=== PATIENT | male | born 2000 | race African-American/Black ===

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

== ENCOUNTER 2022-05-15 02:55 | Emergency (ER) | payer MEDICAID ==
[2022-05-15] MEDS ORDERED: Zofran 4 MG/2 ML VIAL IV ONE (03:21)
[2022-05-15] MEDS ORDERED: Sodium Chloride 0.9% 1000 ML 1,000 ML IV STA ×2 (03:21→04:38)
[2022-05-15] MEDS ORDERED: THIAMINE 200 MG/2 ML IV ONE (03:21)
--- NOTE | 2022-05-15 03:21 | ERPHSYRPT ---
- History of Present Illness Source: patient, other (Friends) Exam Limitations: clinical condition, intoxication Timing/Duration: today Severity: moderate Associated Symptoms: other (Intoxicated), No nausea, No vomiting, No abdominal pain Hx Tetanus, Diphtheria Vaccination/Date Given: Yes Hx Influenza Vaccination/Date Given: Yes Hx Pneumococcal Vaccination/Date Given: No <ALEISHA STONE - Last Filed: 05/15/22 07:09> <SUHAIL LIMON - Last Filed: 05/15/22 07:59> - History of Present Illness Time Seen by Provider: 05/15/22 03:15 Physician History: This is a 22-year-old -[place] male who presents to the emergency department significantly intoxicated with alcohol per friends who brought him in. They describe his intake as a 12 pack of beer with four "4 Saffell" drinks. He drinks he is in a short period of time. Additional history was obtained from the patient's friend. He denies that this patient took any type of illicit drugs and did not smoke any illicit drugs. Patient has a history of asthma. Patient presents to the emergency department and vital signs are stable. Patient's friend states that the patient began drinking before 11 PM last night and his last drink was around 1-1 30 this morning. (ALEISHA STONE) Allergies/Adverse Reactions: No Known Drug Allergies Allergy (Verified 05/15/22 03:36) Home Medications: No Reportable Medications [No Reported Medications] 07/04/20 [History] Travel Risk - International Travel Have you traveled outside of the country in past 3 weeks: No - Coronavirus Screening Are you exhibiting any of the following symptoms?: No Close contact with a COVID-19 positive Pt in past 14-21 Days: No - Vaccine Status Have you recieved a Covid-19 vaccination: No <ALEISHA STONE - Last Filed: 05/15/22 07:09> - Review of Systems Constitutional: Lethargy, Other (Intoxicated) Eyes: No Symptoms Ears, Nose, & Throat: No Symptoms Respiratory: No Symptoms Cardiac: No Symptoms Abdominal/Gastrointestinal: No Symptoms Genitourinary Symptoms: No Symptoms Musculoskeletal: No Symptoms Skin: No Symptoms Neurological: No Symptoms Psychological: No Symptoms Endocrine: No Symptoms Hematologic/Lymphatic: No Symptoms Immunological/Allergic: No Symptoms All Other Systems: Reviewed and Negative <ALEISHA STONE - Last Filed: 05/15/22 07:09> - Past Medical History Pertinent Past Medical History: Yes Neurological History: No Pertinent History ENT History: No Pertinent History Cardiac History: No Pertinent History Respiratory History: Asthma Endocrine Medical History: No Pertinent History Musculoskeletal History: Fractures GI Medical History: No Pertinent History History: No Pertinent History Psycho-Social History: No Pertinent History Male Reproductive Disorders: No Pertinent History - Past Surgical History Past Surgical History: No - Social History Smoking Status: Never smoker Exposure to second hand smoke: Yes Drug Use: marijuana Patient Lives Alone: No Significant Family History: no pertinent family hx <ALEISHA STONE JeremíasCesar - Last Filed: 05/15/22 07:09> - Physical Exam General Appearance: lethargy, other (Intoxicated) Eye Exam: PERRL/EOMI, eyes nml inspection Ears, Nose, Throat Exam: dry mucous membranes Neck Exam: normal inspection, non-tender, supple, full range of motion Respiratory Exam: normal breath sounds, lungs clear, airway intact, No chest tenderness, No respiratory distress Cardiovascular Exam: regular rate/rhythm, normal heart sounds, normal peripheral pulses Gastrointestinal/Abdomen Exam: soft, normal bowel sounds, No tenderness Rectal Exam: not done Back Exam: normal inspection, normal range of motion, No CVA tenderness, No vertebral tenderness Extremity Exam: normal inspection, normal range of motion, pelvis stable Neurologic Exam: confusion, intoxicated appearance Skin Exam: normal color, warm, dry Lymphatic Exam: No adenopathy SpO2 Interpretation: normal O2 Delivery: Room Air <ALEISHA STONE - Last Filed: 05/15/22 07:09> - Nursing Vital Signs Nursing Vital Signs: Initial Vital Signs Temperature 99.7 F 05/15/22 03:04 Pulse Rate 108 H 05/15/22 03:04 Respiratory Rate 24 05/15/22 03:04 Blood Pressure 158/104 05/15/22 03:04 O2 Sat by Pulse Oximetry 99 05/15/22 03:04 Pain Scale Pain Intensity 0 - Course Nursing assessment & vital signs reviewed: Yes EKG Interpreted by Me: RATE, Sinus Rhythm, NORMAL AXIS, NORMAL INTERVALS, NORMAL QRS, NORMAL ST-T, Other <ALEISHA STONE - Last Filed: 05/15/22 07:09> - CT Exams Head CT Interpretation: Tele-radiologist Report (Comps. Normal head) <SUHAIL LIMON - Last Filed: 05/15/22 07:59> Ordered Tests: Active Orders 24 hr Category Date Time Status Clean Catch Urine Specimen STAT Care 05/15/22 03:21 Active EKG-ER Only STAT Care 05/15/22 03:21 Active IV Insertion STAT Care 05/15/22 03:21 Active HEAD WITHOUT CONTRAST [CT] Stat Exams 05/15/22 03:32 Taken ACETAMINOPHEN Stat Lab 05/15/22 03:31 Completed BMP Stat Lab 05/15/22 07:14 Completed CBC W DIFF Stat Lab 05/15/22 03:31 Completed CMP Stat Lab 05/15/22 03:31 Completed ETHYL ALCOHOL Stat Lab 05/15/22 03:31 Completed ETHYL ALCOHOL Stat Lab 05/15/22 07:14 Completed SALICYLATE Stat Lab 05/15/22 03:31 Completed UA W/RFX UR CULTURE Stat Lab 05/15/22 05:44 Completed Urine Triage Profile Stat Lab 05/15/22 05:44 Completed Medication Summary Discontinued Medications Generic Name Dose Route Start Last Admin Trade Name Freq PRN Reason Stop Dose Admin Sodium Chloride 1,000 mls @ 999 mls/hr 05/15/22 03:21 05/15/22 04:30 Sodium Chloride 0.9% 1000 Ml IV 05/15/22 04:21 Infused .Q1H1M STA Infusion Sodium Chloride Confirm 05/15/22 03:26 Sodium Chloride 0.9% 1000 Ml Administered 05/15/22 03:27 Dose 1,000 mls @ ud .ROUTE .STK-MED ONE Multivitamins/Minerals 10 ml/ 1,000 mls @ 250 mls/hr 05/15/22 04:45 Thiamine HCl 100 mg/ Folic IV 06/14/22 04:44 Acid 1 mg/ Sodium Chloride .Q4H LAILA Sodium Chloride 1,000 mls @ 999 mls/hr 05/15/22 04:38 05/15/22 07:24 Sodium Chloride 0.9% 1000 Ml IV 05/15/22 05:38 Infused .Q1H1M STA Infusion Sodium Chloride Confirm 05/15/22 04:46 Sodium Chloride 0.9% 1000 Ml Administered 05/15/22 04:47 Dose 1,000 mls @ ud .ROUTE .STK-MED ONE Ondansetron HCl 4 mg 05/15/22 03:21 05/15/22 03:28 Ondansetron Hcl 4 Mg/2 Ml Vial IV 05/15/22 03:22 4 mg STAT ONE Administration Ondansetron HCl Confirm 05/15/22 03:26 Ondansetron Hcl 4 Mg/2 Ml Vial Administered 05/15/22 03:27 Dose 4 mg .ROUTE .STK-MED ONE Pantoprazole Sodium 40 mg 05/15/22 03:23 05/15/22 03:30 Pantoprazole 40 Mg Vial IV 05/15/22 03:24 40 mg STAT ONE Administration Pantoprazole Sodium Confirm 05/15/22 03:30 Pantoprazole 40 Mg Vial Administered 05/15/22 03:31 Dose 40 mg IV .STK-MED ONE Thiamine HCl 100 mg 05/15/22 03:21 05/15/22 05:37 Thiamine Hcl 200 Mg/2 Ml Vial IV 05/15/22 03:22 Not Given STAT ONE Thiamine HCl Confirm 05/15/22 03:26 Thiamine Hcl 200 Mg/2 Ml Vial Administered 05/15/22 03:27 Dose 200 mg .ROUTE .STK-MED ONE Lab/Rad Data: Laboratory Result Diagrams 05/15/22 03:31 05/15/22 07:14 Laboratory Results 05/15/22 05/15/22 05/15/22 Range/Units 07:14 05:44 05:44 WBC (4.0-10.5) x10^3/uL RBC (4.1-5.6) x10^6/uL Hgb (12.5-18.0) g/dL Hct (42-50) % MCV (78-100) fL MCH (26-32) pg MCHC (32-36) g/dL RDW (11.5-14.0) % Plt Count (150-450) x10^3/uL MPV (7.5-11.0) fL Gran % (36.0-66.0) % Immature Gran % (Auto) (0.00-0.4) % Nucleat RBC Rel Count (0.00-0.1) % Eos # (Auto) (0-0.5) x10^3/uL Immature Gran # (Auto) (0.00-0.03) x10^3u/L Absolute Lymphs (auto) (1.0-4.6) x10^3/uL Absolute Monos (auto) (0.0-1.3) x10^3/uL Absolute Nucleated RBC (0.00-0.01) x10^3u/L Lymphocytes % (24.0-44.0) % Monocytes % (0.0-12.0) % Eosinophils % (0.00-5.0) % Basophils % (0.0-0.4) % Absolute Granulocytes (1.4-6.9) x10^3/uL Basophils # (0-0.4) x10^3/uL Sodium 144 (137-145) mmol/L Potassium 4.2 (3.5-5.1) mmol/L Chloride 110 H (98-107) mmol/L Carbon Dioxide 26 (22-30) mmol/L Anion Gap 12.7 (5-15) MEQ/L BUN 6 L (9-20) mg/dL Creatinine 0.85 (0.66-1.25) mg/dL Estimated GFR > 60.0 ML/MIN Glucose 94 (74-106) mg/dL Calcium 8.0 L (8.4-10.2) mg/dL Total Bilirubin (0.2-1.3) mg/dL AST (17-59) U/L ALT (0-50) U/L Alkaline Phosphatase (38-126) U/L Serum Total Protein (6.3-8.2) g/dL Albumin (3.5-5.0) g/dL Urine Color Yellow (Yellow) Urine Appearance Clear (Clear) Urine pH 6.5 (4.6-8.0) Ur Specific [place] 1.010 (1.005-1.030) Urine Protein Negative (Negative) Urine Glucose (UA) Negative (Negative) mg/dL Urine Ketones Negative (Negative) Urine Blood Negative (Negative) Urine Nitrite Negative (Negative) Urine Bilirubin Negative (Negative) Urine Urobilinogen 0.2 (0.2) mg/dL Ur Leukocyte Esterase Negative (Negative) U Hyaline Cast (Auto) NONE SEEN (0-2) /LPF Urine Microscopic RBC 0-2 (0-5) /HPF Urine Microscopic WBC 0-2 (0-5) /HPF Ur Epithelial Cells None Seen (None Seen) /HPF Urine Bacteria None Seen (None Seen) /HPF Urine Culture Reflexed NO (NO) Salicylates (2-20) mg/dL Urine Opiates Level NEGATIVE (NEGATIVE) Ur Methadone NEGATIVE (NEGATIVE) Acetaminophen (10-30) ug/ml Urine Barbiturates NEGATIVE (NEGATIVE) Ur Phencyclidine (PCP) NEGATIVE (NEGATIVE) Urine Amphetamine NEGATIVE (NEGATIVE) U Benzodiazepine Level NEGATIVE (NEGATIVE) Urine Cocaine NEGATIVE (NEGATIVE) Urine Marijuana (THC) POSITIVE (NEGATIVE) Ethyl Alcohol 122 H (0-10) mg/dL 05/15/22 05/15/22 Range/Units 03:31 03:31 WBC 10.2 (4.0-10.5) x10^3/uL RBC 6.19 H (4.1-5.6) x10^6/uL Hgb 18.1 H (12.5-18.0) g/dL Hct 52.3 H (42-50) % MCV 84.5 (78-100) fL MCH 29.2 (26-32) pg MCHC 34.6 (32-36) g/dL RDW 11.6 (11.5-14.0) % Plt Count 315 (150-450) x10^3/uL MPV 9.6 (7.5-11.0) fL Gran % 52.2 (36.0-66.0) % Immature Gran % (Auto) 0.3 (0.00-0.4) % Nucleat RBC Rel Count 0.0 (0.00-0.1) % Eos # (Auto) 0.49 (0-0.5) x10^3/uL Immature Gran # (Auto) 0.03 (0.00-0.03) x10^3u/L Absolute Lymphs (auto) 3.63 (1.0-4.6) x10^3/uL Absolute Monos (auto) 0.64 (0.0-1.3) x10^3/uL Absolute Nucleated RBC 0.00 (0.00-0.01) x10^3u/L Lymphocytes % 35.6 (24.0-44.0) % Monocytes % 6.3 (0.0-12.0) % Eosinophils % 4.8 (0.00-5.0) % Basophils % 0.8 (0.0-0.4) % Absolute Granulocytes 5.34 (1.4-6.9) x10^3/uL Basophils # 0.08 (0-0.4) x10^3/uL Sodium 144 (137-145) mmol/L Potassium 4.0 (3.5-5.1) mmol/L Chloride 107 (98-107) mmol/L Carbon Dioxide 18 L (22-30) mmol/L Anion Gap 22.9 H (5-15) MEQ/L BUN 7 L (9-20) mg/dL Creatinine 0.89 (0.66-1.25) mg/dL Estimated GFR > 60.0 ML/MIN Glucose 95 (74-106) mg/dL Calcium 9.1 (8.4-10.2) mg/dL Total Bilirubin 0.50 (0.2-1.3) mg/dL AST 136 H (17-59) U/L ALT 59 H (0-50) U/L Alkaline Phosphatase 58 (38-126) U/L Serum Total Protein 8.4 H (6.3-8.2) g/dL Albumin 5.1 H (3.5-5.0) g/dL Urine Color (Yellow) Urine Appearance (Clear) Urine pH (4.6-8.0) Ur Specific [place] (1.005-1.030) Urine Protein (Negative) Urine Glucose (UA) (Negative) mg/dL Urine Ketones (Negative) Urine Blood (Negative) Urine Nitrite (Negative) Urine Bilirubin (Negative) Urine Urobilinogen (0.2) mg/dL Ur Leukocyte Esterase (Negative) U Hyaline Cast (Auto) (0-2) /LPF Urine Microscopic RBC (0-5) /HPF Urine Microscopic WBC (0-5) /HPF Ur Epithelial Cells (None Seen) /HPF Urine Bacteria (None Seen) /HPF Urine Culture Reflexed (NO) Salicylates < 1.0 L (2-20) mg/dL Urine Opiates Level (NEGATIVE) Ur Methadone (NEGATIVE) Acetaminophen < 10 L (10-30) ug/ml Urine Barbiturates (NEGATIVE) Ur Phencyclidine (PCP) (NEGATIVE) Urine Amphetamine (NEGATIVE) U Benzodiazepine Level (NEGATIVE) Urine Cocaine (NEGATIVE) Urine Marijuana (THC) (NEGATIVE) Ethyl Alcohol 177 H (0-10) mg/dL - Progress Progress: improved Counseled pt/family regarding: lab results, diagnosis, need for follow-up, rad results <ALEISHA STONE - Last Filed: 05/15/22 07:09> <SUHAIL LIMON - Last Filed: 05/15/22 07:59> - Progress Progress Note: 05/15/22 07:11 CT scan of the head without contrast has not been read. There is been issue with nighttime radiology system. It has been down for several hours. Dr. Chapa will come in at 7 AM and read this CT scan of the abdomen pelvis. Clinically, the patient is improving. He is now more awake alert oriented and wants to go home at this point but is doing better and will wait until the scan report has returned. Patient care is transferred to Dr. Suhail Limon at shift change. He will follow-up on the final studies and make final disposition. (ALEISHA STONE) Patient endorsed to Dr. Limon at approximately [address] Limon advised to follow- up on pending CT head. There was a delay due to a systemwide failure. CT head read this morning. CT head read as negative. Initial labs revealed a significant anion gap acidosis. However repeat labs after 2 L of IV fluids showed resolved anion gap acidosis. Patient reassessed. Patient neurologic status is normal. Patient ambulated with a normal gait. Patient mentating normally. Patient states he is ready for discharge. He declined breakfast this morning. Laboratory tests ordered include toxicology screen, CBC CMP EtOH, salicylate, urinalysis. CBC reveals a polycythemia with a hemoglobin of 18.1. Urine tox shows marijuana use. Patient's alcohol level was initially 177 and subsequently decreased to 122. Patient's friend is at the bedside. No indication for further work-up at this time. Patient is relatively healthy. No additional acute issues to address. Patient agrees to follow-up with his primary care doctor within 48 hours for reevaluation. Vital stable Portions of this note were created with voice recognition technology. There may be grammatical, spelling, punctuation or sound alike errors 05/15/22 07:55 05/15/22 07:58 (SUHAIL LIMON) - Departure Departure Disposition: Home Critical Care Time: No <ALEISHA STONE - Last Filed: 05/15/22 07:09> <SUHAIL LIMON - Last Filed: 05/15/22 07:59> - Departure Clinical Impression: Alcohol intoxication, Marijuana use, Polycythemia Condition: Stable Referrals: DOCTOR,NO FAMILY [Primary Care Provider] - Follow up/PCP as directed Additional Instructions: Discharge/Care Plan ERIC LACKEY was seen on 05/15/22 in the Emergency Room. The patient was counseled regarding Diagnosis,Lab results, Imaging studies, need for follow up and when to return to the Emergency Room. Prescriptions given: Discharge Note I have spoken with the patient and/or caregivers. I have explained the patient's condition, diagnosis and treatment plan based on the information available to me at this time. I have answered the patient's and/or caregiver's questions and addressed any concerns. The patient and/or caregivers have as good understanding of the patient's diagnosis, condition and treatment plan as can be expected at this point. The vital signs have been stable. The patient's condition is stable and appropriate for discharge from the emergency department. The patient will pursue further outpatient evaluation with the primary care physician or other designated or consulting physician as outlined in the disc harge instructions. The patient and/or caregivers are agreeable to this plan of care and follow-up instructions have been explained in detail. The patient and/or caregivers have received these instruction. The patient/and or caregivers are aware that any significant change in condition or worsening of symptoms should prompt an immediate return to this or the closest emergency department or call 911.
[2022-05-15] MEDS ORDERED: PROTONIX 40 MG IV IV ONE ×2 (03:23→03:30)
[2022-05-15] MEDS ORDERED: Zofran 4 MG/2 ML VIAL ONE (03:26)
[2022-05-15] MEDS ORDERED: Sodium Chloride 0.9% 1000 ML 1,000 ML ONE ×2 (03:26→04:46)
[2022-05-15] MEDS ORDERED: THIAMINE 200 MG/2 ML ONE (03:26)
[2022-05-15 03:34] LABS: Absolute Neutrophil Ct (ANC) 5.34 x10^3/uL (1.4-6.9); BASOPHIL % 0.8 % (0.0-0.4); Basophil (Absolute #) 0.08 x10^3/uL (0-0.4); Eosinophil % 4.8 % (0.00-5.0); Eosinophil (Absolute #) 0.49 x10^3/uL (0-0.5); Hematocrit 52.3 % (42-50); Hemoglobin 18.1 g/dL (12.5-18.0); IMMATURE GRAN # 0.03 x10^3u/L (0.00-0.03); IMMATURE GRAN % 0.3 % (0.00-0.4); Lymphocyte (Absolute #) 3.63 x10^3/uL (1.0-4.6); Lymphocytes % 35.6 % (24.0-44.0); Mean Cell Volume 84.5 fL (78-100); Mean Corpuscular Hemoglobin 29.2 pg (26-32); Mean Corpuscular Hgb Concent. 34.6 g/dL (32-36); Mean Platelet Volume 9.6 fL (7.5-11.0); Monocyte (Absolute #) 0.64 x10^3/uL (0.0-1.3); Monocytes % 6.3 % (0.0-12.0); Neutrophil % 52.2 % (36.0-66.0); Platelet Count 315 x10^3/uL (150-450); Red Blood Count 6.19 x10^6/uL (4.1-5.6); Red Cell Distribution Width 11.6 % (11.5-14.0); White Blood Count 10.2 x10^3/uL (4.0-10.5)
[2022-05-15 03:41] LABS: ACETAMINOPHEN < 10 ug/ml (10-30); ALBUMIN 5.1 g/dL (3.5-5.0); ALKALINE PHOSPHATASE 58 U/L (38-126); ANION GAP 22.9 MEQ/L (5-15); BLOOD UREA NITROGEN 7 mg/dL (9-20); CHLORIDE 107 mmol/L (98-107); Calcium 9.1 mg/dL (8.4-10.2); Carbon Dioxide 18 mmol/L (22-30); Creatinine 1 0.89 mg/dL (0.66-1.25); EST GLOMERULAR FILTRATION RATE > 60.0 ML/MIN; ETHYL ALCOHOL 177 mg/dL (0-10); Glucose 95 mg/dL (74-106); SALICYLATE < 1.0 mg/dL (2-20); SGOT/AST 136 U/L (17-59); SGPT/ALT 59 U/L (0-50); SODIUM 144 mmol/L (137-145); Total Protein 8.4 g/dL (6.3-8.2)
[2022-05-15] MEDS ORDERED: Vitamins For Infusion 10 ML INJECTION*** 10 ML, THIAMINE 200 MG/2 ML*** 100 MG, FOLNATE... IV SCH ×4 (04:45)
[2022-05-15 05:56] LABS: Appearance Clear (Clear); Bacteria None Seen /HPF (None Seen); Bilirubin Negative (Negative); Blood Negative (Negative); Epithelial Cells None Seen /HPF (None Seen); Glucose, Urine Negative (Negative); Hyaline Casts NONE SEEN /LPF (0-2); Ketones Negative (Negative); Leukocyte Esterase Negative (Negative); Nitrite Negative (Negative); Ph 6.5 (4.6-8.0); Protein,Urine Dip Negative (Negative); RBC 0-2 /HPF (0-5); Urobilinogen 0.2 mg/dL (0.2); WBC 0-2 /HPF (0-5)
[2022-05-15 05:57] LABS: ADD URINE CULTURE? NO (NO)
[2022-05-15 06:09] LABS: Amphetamine,Urine NEGATIVE (NEGATIVE); Barbiturate,Urine NEGATIVE (NEGATIVE); Benzodiazepine,Urine NEGATIVE (NEGATIVE); Cocaine,Urine NEGATIVE (NEGATIVE); Methadone,Urine NEGATIVE (NEGATIVE); Opiate,Urine NEGATIVE (NEGATIVE); PCP,Urine NEGATIVE (NEGATIVE); THC,Urine POSITIVE (NEGATIVE)
[2022-05-15 07:37] LABS: ANION GAP 12.7 MEQ/L (5-15); BLOOD UREA NITROGEN 6 mg/dL (9-20); CHLORIDE 110 mmol/L (98-107); Carbon Dioxide 26 mmol/L (22-30); Creatinine 1 0.85 mg/dL (0.66-1.25); EST GLOMERULAR FILTRATION RATE > 60.0 ML/MIN; ETHYL ALCOHOL 122 mg/dL (0-10); Glucose 94 mg/dL (74-106); Potassium 4.2 mmol/L (3.5-5.1); SODIUM 144 mmol/L (137-145)
[2022-05-15 07:38] VITALS: BP 116/47; PULSE 58; O2SAT 97
--- NOTE | 2022-05-15 08:55 | XRAY ---
Indication: Altered mental status. Multiple contiguous axial images obtained through the head without contrast. Comparison: None Normal appearing brain parenchyma, ventricles, and bony calvarium. Visualized paranasal sinuses and mastoid air cells are clear. Impression: Normal CT head without contrast exam.
== END 2022-05-15 08:00 | disposition home or self-care (01) ==
LOC: ED 02:55
DX: F10.129 Alcohol abuse with intoxication, unspecified (principal); F12.90 Cannabis use, unspecified, uncomplicated; Y90.6 Blood alcohol level of 120-199 mg/100 ml; D75.1 Secondary polycythemia; Z28.310 Unvaccinated for COVID-19
CPT/HCPCS: 36000; 36415; 70450; 80048; 80053; 80307; 81001; 85025; 93005; 96360; 96361; 96374; 96375; 99284; J2405; G0480

== ENCOUNTER 2023-01-19 01:13 | Emergency (ER) | payer MEDICAID ==
[2023-01-19] MEDS ORDERED: Zofran 4 MG/2 ML VIAL ONE (01:31)
[2023-01-19] MEDS ORDERED: Sodium Chloride 0.9% 1000 ML 1,000 ML ONE (01:31)
[2023-01-19] MEDS ORDERED: Sodium Chloride 0.9% 1000 ML 1,000 ML IV STA (01:32)
[2023-01-19] MEDS ORDERED: Zofran 4 MG/2 ML VIAL IV ONE (01:33)
[2023-01-19] MEDS ORDERED: PROTONIX 40 MG IV IV ONE ×2 (01:35→01:56)
[2023-01-19 01:36] VITALS: TEMP 97.8
--- NOTE | 2023-01-19 01:39 | ERPHSYRPT ---
<ELI MORAN - Last Filed: 01/19/23 09:41> - History of Present Illness Historian: patient Exam Limitations: no limitations Patient Subjective Stated Complaint: pt states pt has been at a [employer] tonight and was drinking. friend with pt states approx 1 hour ago pt was awake but very intoxicated, then became unresponsive. pt responsive to painful stimuli. Triage Nursing Assessment: pt arrived with friend. friend states pt has been drinking tonight. unknown if he has taken any drugs. pt unresponsive at home, prior to coming into er. pt carried into hospital by friends, back to er per wheelchair and responsive to painful stimuli. pupils equal and reactive. skin warm and dry. Hx Tetanus, Diphtheria Vaccination/Date Given: Yes Hx Influenza Vaccination/Date Given: No Hx Pneumococcal Vaccination/Date Given: No Immunizations Up to Date: Yes <MAKENNA SALINAS - Last Filed: 01/19/23 19:43> - History of Present Illness Time Seen by Provider: 01/19/23 01:35 Physician History: 23-year-old is brought in the ER by friends after if he was drinking a lot at a [employer] and was unresponsive. Patient was minimally responsive to painful stimuli initially but later started vomiting and woke up. Patient reported he has been drinking quite a bit all the evening. Denies any abdominal pain, chest pain or difficulty breathing. Denies any drug use. Not a good historian and history is limited. Patient is not in any distress though. (MAKENNA SALINAS) Allergies/Adverse Reactions: No Known Drug Allergies Allergy (Verified 01/19/23 01:39) Home Medications: No Reportable Medications [No Reported Medications] 07/04/20 [History] Travel Risk - International Travel Have you traveled outside of the country in past 3 weeks: No - Coronavirus Screening Are you exhibiting any of the following symptoms?: No Close contact with a COVID-19 positive Pt in past 14-21 Days: No - Vaccine Status Have you recieved a Covid-19 vaccination: No <MAKENNA SALINAS - Last Filed: 01/19/23 19:43> - Review of Systems All Other Systems: Unable due to condition <MAKENNA SALINAS - Last Filed: 01/19/23 19:43> - Past Medical History Pertinent Past Medical History: Yes Neurological History: No Pertinent History ENT History: No Pertinent History Cardiac History: No Pertinent History Respiratory History: Asthma Endocrine Medical History: No Pertinent History Musculoskeletal History: Fractures GI Medical History: No Pertinent History History: No Pertinent History Psycho-Social History: No Pertinent History Male Reproductive Disorders: No Pertinent History - Past Surgical History Past Surgical History: No - Social History Smoking Status: Never smoker Exposure to second hand smoke: Yes Drug Use: marijuana Patient Lives Alone: No Significant Family History: no pertinent family hx <LEILANI SALINASR - Last Filed: 01/19/23 19:43> - Physical Exam General Appearance: no apparent distress Eye Exam: PERRL/EOMI, eyes nml inspection Ears, Nose, Throat Exam: normal ENT inspection, TMs normal, pharynx normal Neck Exam: normal inspection, non-tender, supple, full range of motion Respiratory Exam: normal breath sounds, lungs clear Cardiovascular Exam: regular rate/rhythm, normal heart sounds Gastrointestinal/Abdomen Exam: soft, normal bowel sounds, No tenderness Extremity Exam: normal inspection, normal range of motion Neurologic Exam: oriented x 3, cooperative, contracts attorney II-XII nml as tested, No motor deficits Skin Exam: normal color SpO2 Interpretation: normal SpO2: 97 O2 Delivery: Room Air <BRENDA SALINASMIR - Last Filed: 01/19/23 19:43> - Nursing Vital Signs Nursing Vital Signs: Initial Vital Signs Temperature 97.8 F 01/19/23 01:19 Pulse Rate 80 01/19/23 01:19 Respiratory Rate 16 01/19/23 01:19 Blood Pressure 153/89 01/19/23 01:19 O2 Sat by Pulse Oximetry 97 01/19/23 01:19 Pain Scale Pain Intensity 0 Ordered Tests: Active Orders 24 hr Category Date Time Status IV Insertion STAT Care 01/19/23 01:35 Completed NPO (ED) STAT Care 01/19/23 01:35 Completed Alcohol [ETHYL ALCOHOL] Stat Lab 01/19/23 01:42 Completed Alcohol [ETHYL ALCOHOL] Stat Lab 01/19/23 05:55 Completed CBC W DIFF Stat Lab 01/19/23 01:42 Completed CMP Stat Lab 01/19/23 01:42 Completed LIPASE Stat Lab 01/19/23 01:42 Completed POCT GLUCOSE Stat Lab 01/19/23 01:17 Completed TROPONIN Q4H Lab 01/19/23 01:42 Completed TROPONIN Q4H Lab 01/19/23 05:55 Completed UA W/RFX UR CULTURE Stat Lab 01/19/23 01:52 Completed Urine Triage Profile Stat Lab 01/19/23 01:52 Completed Medication Summary Discontinued Medications Generic Name Dose Route Start Last Admin Trade Name Amanda PRN Reason Stop Dose Admin Sodium Chloride Confirm 01/19/23 01:31 Sodium Chloride 0.9% 1000 Ml Administered 01/19/23 01:32 Dose 1,000 mls @ ud .ROUTE .STK-MED ONE Sodium Chloride 1,000 mls @ 999 mls/hr 01/19/23 01:32 01/19/23 02:44 Sodium Chloride 0.9% 1000 Ml IV 01/19/23 02:32 Infused .Q1H1M STA Infusion Ondansetron HCl Confirm 01/19/23 01:31 Ondansetron Hcl 4 Mg/2 Ml Vial Administered 01/19/23 01:32 Dose 4 mg .ROUTE .STK-MED ONE Ondansetron HCl 4 mg 01/19/23 01:33 01/19/23 01:34 Ondansetron Hcl 4 Mg/2 Ml Vial IV 01/19/23 01:34 4 mg STAT ONE Administration Pantoprazole Sodium 40 mg 01/19/23 01:35 01/19/23 01:56 Pantoprazole 40 Mg Vial IV 01/19/23 01:36 40 mg STAT ONE Administration Pantoprazole Sodium Confirm 01/19/23 01:56 Pantoprazole 40 Mg Vial Administered 01/19/23 01:57 Dose 40 mg IV .STK-MED ONE Lab/Rad Data: Laboratory Result Diagrams 01/19/23 01:42 01/19/23 01:42 Laboratory Results 01/19/23 01/19/23 01/19/23 Range/Units 05:55 05:55 01:52 WBC (4.0-10.5) x10^3/uL RBC (4.1-5.6) x10^6/uL Hgb (12.5-18.0) g/dL Hct (42-50) % MCV (78-100) fL MCH (26-32) pg MCHC (32-36) g/dL RDW (11.5-14.0) % Plt Count (150-450) x10^3/uL MPV (7.5-11.0) fL Gran % (36.0-66.0) % Immature Gran % (Auto) (0.00-0.4) % Nucleat RBC Rel Count (0.00-0.1) % Eos # (Auto) (0-0.5) x10^3/uL Immature Gran # (Auto) (0.00-0.03) x10^3u/L Absolute Lymphs (auto) (1.0-4.6) x10^3/uL Absolute Monos (auto) (0.0-1.3) x10^3/uL Absolute Nucleated RBC (0.00-0.01) x10^3u/L Lymphocytes % (24.0-44.0) % Monocytes % (0.0-12.0) % Eosinophils % (0.00-5.0) % Basophils % (0.0-0.4) % Absolute Granulocytes (1.4-6.9) x10^3/uL Basophils # (0-0.4) x10^3/uL Sodium (137-145) mmol/L Potassium (3.5-5.1) mmol/L Chloride (98-107) mmol/L Carbon Dioxide (22-30) mmol/L Anion Gap (5-15) MEQ/L BUN (9-20) mg/dL Creatinine (0.66-1.25) mg/dL Estimated GFR ML/MIN Glucose (74-106) mg/dL POC Glucometer (74 to 106) mg/dL Calcium (8.4-10.2) mg/dL Total Bilirubin (0.2-1.3) mg/dL AST (17-59) U/L ALT (0-50) U/L Alkaline Phosphatase (38-126) U/L Troponin I 0.023 (0.000-0.034) ng/mL Serum Total Protein (6.3-8.2) g/dL Albumin (3.5-5.0) g/dL Lipase (23-300) U/L Urine Color (Yellow) Urine Appearance (Clear) Urine pH (4.6-8.0) Ur Specific Nimitz (1.005-1.030) Urine Protein (Negative) Urine Glucose (UA) (Negative) mg/dL Urine Ketones (Negative) Urine Blood (Negative) Urine Nitrite (Negative) Urine Bilirubin (Negative) Urine Urobilinogen (0.2) mg/dL Ur Leukocyte Esterase (Negative) U Hyaline Cast (Auto) (0-2) /LPF Urine Microscopic RBC (0-5) /HPF Urine Microscopic WBC (0-5) /HPF Ur Epithelial Cells (None Seen) /HPF Urine Bacteria (None Seen) /HPF Urine Culture Reflexed (NO) Urine Opiates Level NEGATIVE (NEGATIVE) Ur Methadone NEGATIVE (NEGATIVE) Urine Barbiturates NEGATIVE (NEGATIVE) Ur Phencyclidine (PCP) NEGATIVE (NEGATIVE) Urine Amphetamine NEGATIVE (NEGATIVE) U Benzodiazepine Level NEGATIVE (NEGATIVE) Urine Cocaine NEGATIVE (NEGATIVE) Urine Marijuana (THC) NEGATIVE (NEGATIVE) Ethyl Alcohol 159 H (0-10) mg/dL 01/19/23 01/19/23 01/19/23 Range/Units 01:52 01:42 01:42 WBC (4.0-10.5) x10^3/uL RBC (4.1-5.6) x10^6/uL Hgb (12.5-18.0) g/dL Hct (42-50) % MCV (78-100) fL MCH (26-32) pg MCHC (32-36) g/dL RDW (11.5-14.0) % Plt Count (150-450) x10^3/uL MPV (7.5-11.0) fL Gran % (36.0-66.0) % Immature Gran % (Auto) (0.00-0.4) % Nucleat RBC Rel Count (0.00-0.1) % Eos # (Auto) (0-0.5) x10^3/uL Immature Gran # (Auto) (0.00-0.03) x10^3u/L Absolute Lymphs (auto) (1.0-4.6) x10^3/uL Absolute Monos (auto) (0.0-1.3) x10^3/uL Absolute Nucleated RBC (0.00-0.01) x10^3u/L Lymphocytes % (24.0-44.0) % Monocytes % (0.0-12.0) % Eosinophils % (0.00-5.0) % Basophils % (0.0-0.4) % Absolute Granulocytes (1.4-6.9) x10^3/uL Basophils # (0-0.4) x10^3/uL Sodium (137-145) mmol/L Potassium (3.5-5.1) mmol/L Chloride (98-107) mmol/L Carbon Dioxide (22-30) mmol/L Anion Gap (5-15) MEQ/L BUN (9-20) mg/dL Creatinine (0.66-1.25) mg/dL Estimated GFR ML/MIN Glucose (74-106) mg/dL POC Glucometer (74 to 106) mg/dL Calcium (8.4-10.2) mg/dL Total Bilirubin (0.2-1.3) mg/dL AST (17-59) U/L ALT (0-50) U/L Alkaline Phosphatase (38-126) U/L Troponin I 0.020 (0.000-0.034) ng/mL Serum Total Protein (6.3-8.2) g/dL Albumin (3.5-5.0) g/dL Lipase (23-300) U/L Urine Color Yellow (Yellow) Urine Appearance Clear (Clear) Urine pH 6.0 (4.6-8.0) Ur Specific Nimitz <=1.005 (1.005-1.030) Urine Protein Negative (Negative) Urine Glucose (UA) Negative (Negative) mg/dL Urine Ketones Negative (Negative) Urine Blood Negative (Negative) Urine Nitrite Negative (Negative) Urine Bilirubin Negative (Negative) Urine Urobilinogen 0.2 (0.2) mg/dL Ur Leukocyte Esterase Negative (Negative) U Hyaline Cast (Auto) NONE SEEN (0-2) /LPF Urine Microscopic RBC 0-2 (0-5) /HPF Urine Microscopic WBC 0-2 (0-5) /HPF Ur Epithelial Cells None Seen (None Seen) /HPF Urine Bacteria None Seen (None Seen) /HPF Urine Culture Reflexed NO (NO) Urine Opiates Level (NEGATIVE) Ur Methadone (NEGATIVE) Urine Barbiturates (NEGATIVE) Ur Phencyclidine (PCP) (NEGATIVE) Urine Amphetamine (NEGATIVE) U Benzodiazepine Level (NEGATIVE) Urine Cocaine (NEGATIVE) Urine Marijuana (THC) (NEGATIVE) Ethyl Alcohol 227 H (0-10) mg/dL 01/19/23 01/19/23 01/19/23 Range/Units 01:42 01:42 01:17 WBC 9.9 (4.0-10.5) x10^3/uL RBC 5.75 H (4.1-5.6) x10^6/uL Hgb 16.9 (12.5-18.0) g/dL Hct 49.6 (42-50) % MCV 86.3 (78-100) fL MCH 29.4 (26-32) pg MCHC 34.1 (32-36) g/dL RDW 11.9 (11.5-14.0) % Plt Count 277 (150-450) x10^3/uL MPV 9.5 (7.5-11.0) fL Gran % 54.4 (36.0-66.0) % Immature Gran % (Auto) 0.7 H (0.00-0.4) % Nucleat RBC Rel Count 0.0 (0.00-0.1) % Eos # (Auto) 0.88 H (0-0.5) x10^3/uL Immature Gran # (Auto) 0.07 H (0.00-0.03) x10^3u/L Absolute Lymphs (auto) 2.69 (1.0-4.6) x10^3/uL Absolute Monos (auto) 0.77 (0.0-1.3) x10^3/uL Absolute Nucleated RBC 0.00 (0.00-0.01) x10^3u/L Lymphocytes % 27.2 (24.0-44.0) % Monocytes % 7.8 (0.0-12.0) % Eosinophils % 8.9 H (0.00-5.0) % Basophils % 1.0 (0.0-0.4) % Absolute Granulocytes 5.39 (1.4-6.9) x10^3/uL Basophils # 0.10 (0-0.4) x10^3/uL Sodium 141 (137-145) mmol/L Potassium 3.8 (3.5-5.1) mmol/L Chloride 107 (98-107) mmol/L Carbon Dioxide 25 (22-30) mmol/L Anion Gap 12.9 (5-15) MEQ/L BUN 11 (9-20) mg/dL Creatinine 0.82 (0.66-1.25) mg/dL Estimated GFR > 60.0 ML/MIN Glucose 98 (74-106) mg/dL POC Glucometer 111 H (74 to 106) mg/dL Calcium 9.4 (8.4-10.2) mg/dL Total Bilirubin 0.40 (0.2-1.3) mg/dL AST 32 (17-59) U/L ALT 33 (0-50) U/L Alkaline Phosphatase 65 (38-126) U/L Troponin I (0.000-0.034) ng/mL Serum Total Protein 7.7 (6.3-8.2) g/dL Albumin 4.6 (3.5-5.0) g/dL Lipase 55 (23-300) U/L Urine Color (Yellow) Urine Appearance (Clear) Urine pH (4.6-8.0) Ur Specific Nimitz (1.005-1.030) Urine Protein (Negative) Urine Glucose (UA) (Negative) mg/dL Urine Ketones (Negative) Urine Blood (Negative) Urine Nitrite (Negative) Urine Bilirubin (Negative) Urine Urobilinogen (0.2) mg/dL Ur Leukocyte Esterase (Negative) U Hyaline Cast (Auto) (0-2) /LPF Urine Microscopic RBC (0-5) /HPF Urine Microscopic WBC (0-5) /HPF Ur Epithelial Cells (None Seen) /HPF Urine Bacteria (None Seen) /HPF Urine Culture Reflexed (NO) Urine Opiates Level (NEGATIVE) Ur Methadone (NEGATIVE) Urine Barbiturates (NEGATIVE) Ur Phencyclidine (PCP) (NEGATIVE) Urine Amphetamine (NEGATIVE) U Benzodiazepine Level (NEGATIVE) Urine Cocaine (NEGATIVE) Urine Marijuana (THC) (NEGATIVE) Ethyl Alcohol (0-10) mg/dL - Progress Progress: improved Counseled pt/family regarding: lab results, diagnosis, need for follow-up, rad results <MAKENNA SALINAS - Last Filed: 01/19/23 19:43> - Progress Progress Note: 01/19/23 06:32 23-year-old is brought in the ER by friends after if he was drinking a lot at a [employer] and was unresponsive. Patient was minimally responsive to painful stimuli initially but later started vomiting and woke up. Patient reported he has been drinking quite a bit all the evening. Denies any abdominal pain, chest pain or difficulty breathing. Denies any drug use. Not a good historian and history is limited. Patient is not in any distress though. He is given fluids and symptomatic treatment, on reevaluation patient is feeling much better. He is resting comfortably. He is sleepy but arousable to verbal commands. Patient blood alcohol in 200s, on recheck it is in 150s. Baseline work-up including CBC/CMP and urine drug screens are fairly unremarkable. I do not think patient needs imaging, abdominal exam is soft nontender. Patient will be discharge with a responsible person if available otherwise we will repeat alcohol and discharge below the legal limit. Patient counseled (MAKENNA SALINAS) Medical Desision Making - Diagnostic Testing Diagnostic test were ordered, analyzed, and reviewed by me: Yes <MAKENNA SALINAS - Last Filed: 01/19/23 19:43> - Departure Departure Disposition: Home Critical Care Time: No <ELI MORAN - Last Filed: 01/19/23 09:41> - Departure Departure Disposition: Home Critical Care Time: No <MAKENNA SALINAS - Last Filed: 01/19/23 19:43> - Departure Clinical Impression: Alcohol intoxication Condition: Stable Referrals: DOCTOR,NO FAMILY [Primary Care Provider] - Follow up with PCP 2 days Instructions: Alcohol Use Disorder (DC) Additional Instructions: Follow-up with your primary care physician for reevaluation in 1 to 2 days. Take Tylenol/Zofran as needed. Return to ER for intractable vomiting/abdominal pain/fever chills etc. Do not drink alcohol.
[2023-01-19 01:45] LABS: Absolute Neutrophil Ct (ANC) 5.39 x10^3/uL (1.4-6.9); Eosinophil % 8.9 % (0.00-5.0); Eosinophil (Absolute #) 0.88 x10^3/uL (0-0.5); Hematocrit 49.6 % (42-50); Hemoglobin 16.9 g/dL (12.5-18.0); IMMATURE GRAN # 0.07 x10^3u/L (0.00-0.03); IMMATURE GRAN % 0.7 % (0.00-0.4); Lymphocyte (Absolute #) 2.69 x10^3/uL (1.0-4.6); Lymphocytes % 27.2 % (24.0-44.0); Mean Cell Volume 86.3 fL (78-100); Mean Corpuscular Hemoglobin 29.4 pg (26-32); Mean Corpuscular Hgb Concent. 34.1 g/dL (32-36); Mean Platelet Volume 9.5 fL (7.5-11.0); Monocyte (Absolute #) 0.77 x10^3/uL (0.0-1.3); Monocytes % 7.8 % (0.0-12.0); Neutrophil % 54.4 % (36.0-66.0); Platelet Count 277 x10^3/uL (150-450); Red Blood Count 5.75 x10^6/uL (4.1-5.6); Red Cell Distribution Width 11.9 % (11.5-14.0); White Blood Count 9.9 x10^3/uL (4.0-10.5)
[2023-01-19 01:58] LABS: ALBUMIN 4.6 g/dL (3.5-5.0); ALKALINE PHOSPHATASE 65 U/L (38-126); ANION GAP 12.9 MEQ/L (5-15); BLOOD UREA NITROGEN 11 mg/dL (9-20); CHLORIDE 107 mmol/L (98-107); Calcium 9.4 mg/dL (8.4-10.2); Carbon Dioxide 25 mmol/L (22-30); Creatinine 1 0.82 mg/dL (0.66-1.25); EST GLOMERULAR FILTRATION RATE > 60.0 ML/MIN; Glucose 98 mg/dL (74-106); LIPASE 55 U/L (23-300); Potassium 3.8 mmol/L (3.5-5.1); SGOT/AST 32 U/L (17-59); SGPT/ALT 33 U/L (0-50); SODIUM 141 mmol/L (137-145); Total Protein 7.7 g/dL (6.3-8.2)
[2023-01-19 02:08] LABS: Appearance Clear (Clear); Bacteria None Seen /HPF (None Seen); Bilirubin Negative (Negative); Blood Negative (Negative); Epithelial Cells None Seen /HPF (None Seen); Glucose, Urine Negative (Negative); Hyaline Casts NONE SEEN /LPF (0-2); Ketones Negative (Negative); Leukocyte Esterase Negative (Negative); Nitrite Negative (Negative); Protein,Urine Dip Negative (Negative); RBC 0-2 /HPF (0-5); Specific Gravity <=1.005 (1.005-1.030); Urobilinogen 0.2 mg/dL (0.2); WBC 0-2 /HPF (0-5)
[2023-01-19 02:13] LABS: ADD URINE CULTURE? NO (NO)
[2023-01-19 02:19] LABS: Amphetamine,Urine NEGATIVE (NEGATIVE); Barbiturate,Urine NEGATIVE (NEGATIVE); Benzodiazepine,Urine NEGATIVE (NEGATIVE); Cocaine,Urine NEGATIVE (NEGATIVE); Methadone,Urine NEGATIVE (NEGATIVE); Opiate,Urine NEGATIVE (NEGATIVE); PCP,Urine NEGATIVE (NEGATIVE); THC,Urine NEGATIVE (NEGATIVE)
[2023-01-19 09:24] VITALS: BP 116/69; PULSE 69; RESP 25
[2023-01-19 19:43] VITALS: O2SAT 97
== END 2023-01-19 09:43 | disposition home or self-care (01) ==
LOC: ED 01:13
DX: F10.129 Alcohol abuse with intoxication, unspecified (principal); Y90.7 Blood alcohol level of 200-239 mg/100 ml; R40.4 Transient alteration of awareness; Z28.310 Unvaccinated for COVID-19
CPT/HCPCS: 36000; 36415; 80053; 80307; 81001; 82077; 82947; 83690; 84484; 85025; 96360; 96374; 96375; 99284; J2405

== ENCOUNTER 2023-05-14 00:43 | Emergency (ER) | payer BC, MEDICAID ==
--- NOTE | 2023-05-14 02:13 | ERPHSYRPT ---
- History of Present Illness Time Seen by Provider: 05/14/23 02:09 Source: patient Exam Limitations: no limitations Physician History: 23-year-old male presents to the emergency department for evaluation of pruritic rash. Patient states he donated plasma today at approximately 430. At approximately 5 PM he started to itch. Patient has donated plasma in the past. Patient is itching on his back his arms and trunk. No difficulty breathing. No intraoral lesions or abnormalities. Patient has no known drug allergies otherwise. Symptoms are moderate in intensity. No specific worsening or improving factors. Patient is otherwise healthy. He voices no other complaints or concerns at this time. Portions of this note were created with voice recognition technology. There may be grammatical, spelling, punctuation or sound alike errors Timing/Duration: yesterday Severity: moderate Modifying Factors: Improves With: nothing Associated Symptoms: denies symptoms Allergies/Adverse Reactions: No Known Drug Allergies Allergy (Verified 05/14/23 02:05) Hx Tetanus, Diphtheria Vaccination/Date Given: Yes Hx Influenza Vaccination/Date Given: No Hx Pneumococcal Vaccination/Date Given: No Travel Risk - Vaccine Status Have you recieved a Covid-19 vaccination: No - Review of Systems Constitutional: No Symptoms, No Fever, No Chills Eyes: No Symptoms Ears, Nose, & Throat: No Symptoms Respiratory: No Symptoms, No Cough, No Dyspnea Cardiac: No Symptoms, No Chest Pain, No Edema, No Syncope Abdominal/Gastrointestinal: No Symptoms, No Abdominal Pain, No Nausea, No Vomiting, No Diarrhea Genitourinary Symptoms: No Symptoms, No Dysuria Musculoskeletal: No Symptoms, No Back Pain, No Neck Pain Skin: No Symptoms, No Rash Neurological: No Symptoms, No Dizziness, No Focal Weakness, No Sensory Changes Psychological: No Symptoms Endocrine: No Symptoms Hematologic/Lymphatic: No Symptoms Immunological/Allergic: No Symptoms All Other Systems: Reviewed and Negative - Past Medical History Pertinent Past Medical History: Yes Neurological History: No Pertinent History ENT History: No Pertinent History Cardiac History: No Pertinent History Respiratory History: Asthma Endocrine Medical History: No Pertinent History Musculoskeletal History: Fractures GI Medical History: No Pertinent History History: No Pertinent History Psycho-Social History: No Pertinent History Male Reproductive Disorders: No Pertinent History - Past Surgical History Past Surgical History: No - Social History Smoking Status: Never smoker Exposure to second hand smoke: Yes Drug Use: marijuana Patient Lives Alone: No Significant Family History: no pertinent family hx - Nursing Vital Signs Nursing Vital Signs: Initial Vital Signs Temperature 98.6 F 05/14/23 00:44 Pulse Rate 64 05/14/23 00:44 Respiratory Rate 16 05/14/23 00:44 Blood Pressure 114/80 05/14/23 00:44 O2 Sat by Pulse Oximetry 99 05/14/23 00:44 Pain Scale Pain Intensity 0 - Physical Exam General Appearance: no apparent distress, alert Eye Exam: PERRL/EOMI, eyes nml inspection Ears, Nose, Throat Exam: normal ENT inspection, pharynx normal, moist mucous membranes Neck Exam: normal inspection, non-tender, supple, full range of motion Respiratory Exam: normal breath sounds, lungs clear, No respiratory distress Cardiovascular Exam: regular rate/rhythm, normal heart sounds, normal peripheral pulses Gastrointestinal/Abdomen Exam: soft, normal bowel sounds, No tenderness, No mass Back Exam: normal inspection, normal range of motion, No CVA tenderness, No vertebral tenderness Extremity Exam: normal inspection, normal range of motion, pelvis stable Neurologic Exam: alert, oriented x 3, cooperative, normal mood/affect, nml cerebellar function, nml station & gait, sensation nml, No motor deficits Skin Exam: normal color, warm, dry, No rash Lymphatic Exam: No adenopathy SpO2 Interpretation: normal O2 Delivery: Room Air - Course Nursing assessment & vital signs reviewed: Yes Ordered Tests: Active Orders 24 hr Category Date Time Status IV Insertion STAT Care 05/14/23 02:08 Active Medication Summary Discontinued Medications Generic Name Dose Route Start Last Admin Trade Name Freq PRN Reason Stop Dose Admin Methylprednisolone Sodium 0 mg 05/14/23 02:08 05/14/23 02:41 Succinate 125 mg/ Sterile IV 05/14/23 02:09 125 mg Water 2 ml STAT ONE Administration Diphenhydramine HCl 25 mg 05/14/23 02:08 05/14/23 02:42 Diphenhydramine Hcl 50 Mg/Ml Vial IV 05/14/23 02:09 25 mg STAT ONE Administration Diphenhydramine HCl Confirm 05/14/23 02:37 Diphenhydramine Hcl 50 Mg/Ml Vial Administered 05/14/23 02:38 Dose 50 mg .ROUTE .STK-MED ONE Famotidine 20 mg 05/14/23 02:08 05/14/23 02:42 Famotidine 20 Mg/1 Vial IV 05/14/23 02:09 20 mg STAT ONE Administration Famotidine Confirm 05/14/23 02:37 Famotidine 20 Mg/1 Vial Administered 05/14/23 02:38 Dose 20 mg IV .STK-MED ONE Methylprednisolone Sodium Succinate Confirm 05/14/23 02:37 Methylprednis Sod Succ 125 Mg/2 Ml Vial Administered 05/14/23 02:38 Dose 125 mg .ROUTE .STK-MED ONE Sterile Water Confirm 05/14/23 02:37 Water For Injection,Sterile 10 Ml Vial Administered 05/14/23 02:38 Dose 10 ml IJ .STK-MED ONE - Progress Progress: improved Progress Note: Patient reassessed. Pruritus resolved. Patient resting comfortably. Patient states he is ready for discharge. Vital stable. Prescription for prednisone, EpiPen, Pepcid forwarded to patient's pharmacy. Patient agrees to follow-up with her primary care doctor within 48 hours for evaluation. Portions of this note were created with voice recognition technology. There may be grammatical, spelling, punctuation or sound alike errors Complexity problem addressed is moderate acute complicated No critical care time Complex of data reviewed and analyzed is none. No specialized testing ordered. Diagnosis made based on history and physical exam. Risk of complication and or risk of morbidity/mortality of patient management is moderate. Prescription for prednisone, EpiPen and famotidine forwarded to patient's pharmacy. Vital stable. Time spent to discharge patient is approximately 15 minutes. Plan of care established for shared decision making. No social determinants of health present impede follow-up. Portions of this note were created with voice recognition technology. There may be grammatical, spelling, punctuation or sound alike errors 05/14/23 03:26 Counseled pt/family regarding: diagnosis, need for follow-up - Departure Departure Disposition: Home Clinical Impression: Pruritic rash, Allergic reaction Condition: Stable Critical Care Time: No Referrals: DOCTOR,NO FAMILY [Primary Care Provider] - Follow up/PCP as directed JEAN CHAMPION MD [ACTIVE STAFF] - Follow up/PCP as directed Additional Instructions: Discharge/Care Plan ERIC LACKEY was seen on 05/14/23 in the Emergency Room. The patient was counseled regarding Diagnosis,Lab results, Imaging studies, need for follow up and when to return to the Emergency Room. Prescriptions given: Discharge Note I have spoken with the patient and/or caregivers. I have explained the patient's condition, diagnosis and treatment plan based on the information available to me at this time. I have answered the patient's and/or caregiver's questions and addressed any concerns. The patient and/or caregivers have as good understanding of the patient's diagnosis, condition and treatment plan as can be expected at this point. The vital signs have been stable. The patient's condition is stable and appropriate for discharge from the emergency department. The patient will pursue further outpatient evaluation with the primary care physician or other designated or consulting physician as outlined in the discharge instructions. The patient and/or caregivers are agreeable to this plan of care and follow-up instructions have been explained in detail. The patient and/or caregivers have received these instruction. The patient/and or caregivers are aware that any significant change in condition or worsening of symptoms should prompt an immediate return to this or the closest emergency department or call 911. Prescriptions: Prednisone 10 mg [Deltasone 10 mg] 40 mg PO DAILY 3 Days #12 tablet EPINEPHrine [Epipen 2-Nabeel] 0.3 mg IJ DAILY 1 Days #1 unit Famotidine 20 mg [Pepcid 20 MG] 20 mg PO BID 7 Days #14 tablet
[2023-05-14 02:26] VITALS: BP 114/80; TEMP 98.6
[2023-05-14] MEDS ORDERED: solu-MEDROL ONE (02:37)
[2023-05-14] MEDS ORDERED: Pepcid 20 MG VIAL IV ONE (02:37)
[2023-05-14] MEDS ORDERED: Sterile H2O 10 ml IJ ONE (02:37)
[2023-05-14] MEDS ORDERED: BENADRYL 50 MG/ML ONE (02:37)
[2023-05-14] MEDS: solu-MEDROL 125 MG, Sterile H2O 10 ml 2 ML IV ONE (02:41)
[2023-05-14] MEDS: BENADRYL 50 MG/ML IV ONE (02:42)
[2023-05-14] MEDS: Pepcid 20 MG VIAL IV ONE (02:42)
[2023-05-14 03:08] VITALS: PULSE 62; RESP 14; O2SAT 98
== END 2023-05-14 03:43 | disposition home or self-care (01) ==
LOC: ED 00:43
DX: T78.40XA Allergy, unspecified, initial encounter (principal); R21 Rash and other nonspecific skin eruption; Z79.52 Long term (current) use of systemic steroids; Z28.310 Unvaccinated for COVID-19
CPT/HCPCS: 36000; 96374; 96375; 99283; J1200; J2930

== ENCOUNTER 2024-03-23 04:39 | Emergency (ER) | payer OTHER ==
--- NOTE | 2024-03-23 04:41 | ERPHSYRPT ---
- History of Present Illness Time Seen by Provider: 03/23/24 04:41 Source: patient, family Exam Limitations: no limitations Physician History: This is a 24-year-old male patient who arrives from work escorted by his boss with the complaint of left eye foreign body. The patient was shaving metal when a metal shaving hit his left eye and he could see and feel a foreign body present. He was wearing protective goggles. Patient has no known drug allergies. 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 Allergies/Adverse Reactions: No Known Drug Allergies Allergy (Verified 03/23/24 04:52) Hx Tetanus, Diphtheria Vaccination/Date Given: Yes Hx Influenza Vaccination/Date Given: No Hx Pneumococcal Vaccination/Date Given: No Travel Risk - International Travel Have you traveled outside of the country in past 3 weeks: No - Emerging Infectious Disease Are you exhibiting symptoms associated with any current EIDs: No - Review of Systems Constitutional: No Symptoms Eyes: Eye Pain (Left eye pain), Eye Redness (Left medial (9:00) conjunctivitis), Tearing (Left eye), Foreign Body Sensation (Left eye) Ears, Nose, & Throat: No Symptoms Respiratory: No Symptoms Cardiac: No Symptoms Abdominal/Gastrointestinal: No Symptoms Genitourinary Symptoms: No Symptoms Musculoskeletal: No Symptoms Skin: No Symptoms Neurological: No Symptoms Psychological: No Symptoms Endocrine: No Symptoms Hematologic/Lymphatic: No Symptoms Immunological/Allergic: No Symptoms All Other Systems: Reviewed and Negative - Past Medical History Pertinent Past Medical History: Yes Neurological History: No Pertinent History ENT History: No Pertinent History Cardiac History: No Pertinent History Respiratory History: Asthma Endocrine Medical History: No Pertinent History Musculoskeletal History: Fractures GI Medical History: No Pertinent History History: No Pertinent History Psycho-Social History: No Pertinent History Male Reproductive Disorders: No Pertinent History - Past Surgical History Past Surgical History: No Significant Family History: no pertinent family hx - Social History Smoking Status: Never smoker Exposure to second hand smoke: Yes Drug Use: marijuana Patient Lives Alone: No - Nursing Vital Signs Nursing Vital Signs: Initial Vital Signs Temperature 98 F 03/23/24 04:43 Pulse Rate 65 03/23/24 04:43 Respiratory Rate 19 12/17/24 04:43 Blood Pressure 140/84 03/23/24 04:43 O2 Sat by Pulse Oximetry 97 03/23/24 04:43 Pain Scale Pain Intensity 5 - Physical Exam General Appearance: no apparent distress, alert Eye Exam: right eye: normal inspection, EOMI, corneal abrasion (Mild, medial aspect (9 o'clock position)), left eye: conjunctival inflammation (Medial aspect), foreign body (Single metal shaving medially), bilateral eye: PERRL Ears, Nose, Throat Exam: normal ENT inspection, moist mucous membranes Neck Exam: normal inspection, non-tender, supple, full range of motion Respiratory Exam: airway intact, No chest tenderness, No respiratory distress Gastrointestinal Exam: No tenderness Extremity Exam: normal inspection, normal range of motion, pelvis stable Neurologic: alert, oriented x 3, cooperative, pediatric oncologist II-XII nml as tested, normal mood/affect, nml cerebellar function, nml station & gait, sensation nml Skin Exam: normal color, warm, dry Lymphatic: No adenopathy SpO2 Interpretation: normal O2 Delivery: Room Air Procedures - Eye Procedure Time of Procedure: 05:00 Timeout: Performed Tetracaine Drops Administered: Yes Eye FB Removal: removal w/ cotton swab Remaining Material after FB Removal: none Antibiotic Oinment/Drps Admin: left eye (At the 9 o'clock position there was a single metal shaving present. After removal small cavity with mild abrasion present.) - Course Nursing assessment & vital signs reviewed: Yes Ordered Tests: Medication Summary Discontinued Medications Generic Name Dose Route Start Last Admin Trade Name Amanda PRN Reason Stop Dose Admin Fluorescein Sodium 1 mg 03/23/24 04:51 03/23/24 05:03 Fluorescein Sodium 1 Mg/Strip Strip OP 03/23/24 04:52 Not Given STAT ONE Fluorescein Sodium Confirm 03/23/24 04:50 Fluorescein Sodium 1 Mg/Strip Strip Administered 03/23/24 04:51 Dose 1 mg OP .STK-MED ONE Tetracaine HCl Confirm 03/23/24 04:47 Tetracaine Hcl/Pf 4 Ml Bottle Administered 03/23/24 04:48 Dose 4 ml OP .STK-MED ONE Tetracaine HCl 4 ml 03/23/24 04:53 03/23/24 04:54 Tetracaine Hcl/Pf 4 Ml Bottle OP 03/23/24 04:54 4 ml STAT STA Administration - Progress Progress: improved Progress Note: 03/23/24 05:16 My medical decision making and the assignment of low complexity to this patient's medical issue today is based on review of the patient's past medical history, review of the patient's medication list, reviewed patient drug allergy list, history present illness and physical findings on examination. The workup in this patient does not require laboratory radiographic studies. Differential diagnosis includes but is not limited to left eye foreign body, left eye corneal abrasion Counseled pt/family regarding: diagnosis, need for follow-up Medical Desision Making - Diagnostic Testing Diagnostic test were ordered, analyzed, and reviewed by me: No - Risk of complications The pt has a mod risk of morbidity or mortality based on: Need for prescription drug management - Departure Departure Disposition: Home Clinical Impression: Foreign body of left eye, Corneal abrasion, left Condition: Stable Critical Care Time: No Referrals: DOCTOR,NO FAMILY [Primary Care Provider] - Follow up/PCP as directed Additional Instructions: Use your eyedrops as prescribed. May use Tylenol and ibuprofen for pain control. Call an machine tender today, 03/23/2024, to make arrangements for follow-up appointment to be seen in the next 2 to 3 days for follow-up. Prescriptions: Neomycin/Polymyxin B/Dexametha [Rctqln-Bmvzg-Yuemyhew Eye Drop] 5 ml OP Q6H #5 ml
[2024-03-23] MEDS ORDERED: TETRACAINE 0.5% STERI-UNIT SOL OP ONE (04:47)
[2024-03-23] MEDS ORDERED: Fluor-I-Strip/Ful-Flo OP ONE (04:50)
[2024-03-23] MEDS ORDERED: TETRAHYDRALAZINE 0.05% Drops OP STA (04:51)
[2024-03-23 04:52] VITALS: TEMP 98
[2024-03-23] MEDS: Fluor-I-Strip/Ful-Flo OP ONE (04:53)
[2024-03-23] MEDS: TETRACAINE 0.5% STERI-UNIT SOL OP STA (04:54)
[2024-03-23 05:08] VITALS: BP 135/69; PULSE 57; RESP 16; O2SAT 99
[2024-03-23] MEDS ORDERED: NORCO 5/325 MG ONE (05:28)
[2024-03-23] MEDS: NORCO 5/325 MG PO ONE (05:30)
== END 2024-03-23 05:37 | disposition home or self-care (01) ==
LOC: ED 04:39
DX: T15.02XA Foreign body in cornea, left eye, initial encounter (principal); W44.8XXA Other foreign body entering into or through a natural orifice, initial encounter; Y93.89 Activity, other specified; Y99.0 Civilian activity done for income or pay
CPT/HCPCS: 65220; 99282; A9270-GY